=== PATIENT | male | born 1955 | race African-American/Black ===

== ENCOUNTER 2019-05-12 21:38 | Emergency (ER) | payer OTHER ==
[~2019-05-12] VITALS: Ht 172.7 cm; Wt 107.8 kg
[2019-05-12] MEDS ORDERED: ACETAMINOPHEN 325 MG TAB PO ONE (22:15)
[2019-05-12 23:36] LABS: Basophils # (auto) 0 uL; Basophils % (auto) 0.3 % (0.0-2.0); Eosinophils # (auto) 0 uL; Eosinophils % (auto) 0.3 % (0.0-7.0); Hematocrit 42.9 % (41.0-53.0); Hemoglobin 14.6 g/dL (13.5-17.5); Lymphocytes # (auto) 1.6 uL; Lymphocytes % (auto) 15.4 % (10.0-50.0); Mean Corpuscular Hemoglobin 32.3 pg (28.0-32.0); Mean Corpuscular Hgb Conc. 34.1 g/dL (32.0-36.0); Mean Corpuscular Volume 94.5 fL (80.0-100.0); Monocytes # (auto) 1.7 uL; Monocytes % (auto) 16.2 % (0.0-12.0); Neutrophils % (auto) 67.8 % (37.0-80.0); Platelet Count (auto) 191 10^3/uL (140-450); Red Blood Cells 4.54 10^6/uL (4.5-5.90); Red Cell Distribution Width 13.9 % (11.8-14.3); White Blood Cell 10.4 10^3/uL (4.4-10.8)
[2019-05-12 23:39] LABS: Alanine Aminotransferase 70 U/L (16-61); Albumin 2.5 g/dL (3.4-5.0); Amylase 46 U/L (25-115); Anion Gap 10 (5-15); Aspartate Aminotransferase 95 U/L (15-37); BUN/Creatinine Ratio 9.9; Blood Urea Nitrogen 12 mg/dL (7-18); Calcium 8.2 mg/dL (8.5-10.1); Carbon Dioxide 26 mmol/L (21-32); Chloride 102 mmol/L (98-107); GFR African American 78 mL/min; GFR Non-African American 64 mL/min; Glucose 149 mg/dL (74-106); Lipase 146 U/L (73-393); Potassium 3.2 mmol/L (3.5-5.1); Sodium 138 mmol/L (136-145)
[2019-05-12 23:44] LABS: Alkaline Phosphatase 141 U/L (45-117); Bilirubin, Total 1.2 mg/dL (0.2-1.0); Lactic Acid w/Reflex 2.5 mmol/L (0.4-2.0); Total Protein 8.2 g/dL (6.4-8.2)
[2019-05-13] MEDS ORDERED: PROMETHAZINE HCL 25 MG/ML 1ML IV ONE (08:00)
[2019-05-13] MEDS ORDERED: HYDROmorphone HCL 2 MG/ML VL IV ONE (08:00)
[2019-05-13 08:15] LABS: Urine Bacteria NONE SEEN /hpf (None Seen); Urine Blood TRACE /uL (Negative); Urine Specific Gravity 1.018 (1.001-1.035); Urine WBC 3 /hpf (0 - 3)
[2019-05-13] MEDS ORDERED: ATOR40TA52 PO (10:16)
[2019-05-13] MEDS ORDERED: METO25TA62 PO (10:16)
[2019-05-13] MEDS ORDERED: AMLO10TA13 PO (10:16)
[2019-05-13] MEDS ORDERED: SODIUM CHLORIDE 0.9% 1,000 ML IV ONE (11:15)
[2019-05-13] MEDS ORDERED: POTASSIUM EFFERVESENT TAB 25 MEQ PO ONE (12:45)
[2019-05-13] MEDS ORDERED: cefTRIAXone 1GM/50ML D5W 50 ML IV ONE (12:45)
[2019-05-13 15:29] VITALS: BP 140/70
== END 2019-05-13 15:58 | disposition short-term general hospital (02) ==
LOC: EDBD 21:38 → ER 21:38
DX: K74.60 Unspecified cirrhosis of liver (principal); J18.9 Pneumonia, unspecified organism; E87.6 Hypokalemia; E46 Unspecified protein-calorie malnutrition; I10 Essential (primary) hypertension; Z90.89 Acquired absence of other organs
CPT/HCPCS: 36415; 71046; 74176; 80053; 81001; 82150; 83605; 83690; 84484; 85025; 87040; 87077; 87186; 93005; 94761; 96361; 96365; 96375; 99285; J0696; J1170; J2550; J7030